=== PATIENT | male | born 1980 | race African-American/Black ===

== ENCOUNTER 2017-07-17 13:43 | Emergency (ER) | payer OTHER ==
[~2017-07-17] VITALS: Ht 170.2 cm; Wt 68.0 kg
[2017-07-17 14:12] VITALS: BP 132/94
--- NOTE | 2017-07-17 14:29 | Emergency Room Report ---
History of Present Illness General Chief Complaint: Skin Rash/Abscess Source: Patient Present Illness HPI 37 yo male presents to ER complaining of perianal abscess x2 days. Patient reports abscess has not drained; denies pus or blood from wound. Reports taking Ibuprofen for pain at 11AM. Patient denies related factors. Patient states he began to feel the bump at that time and has slowly been growing and becoming more painful since then. Patient reports hx of abscess; states they have been drained before or drained on there own; reports episodes of abscess in the same spot "4 or 5" times previously. Denies fever, chest pain, SOB, diarrhea, abdominal pain, blood in stool. Allergies: Coded Allergies: MORPHINE (Verified Adverse Reaction, Unknown, Hives, 07/17/17) Patient History Past Medical History: see triage record Reviewed Nursing Documentation: PMH: Agreed, PSxH: Agreed Nursing Documentation-PMH Hx Cardiac Problems: Yes - Heart valve surgery Review of Systems All Other Systems: negative except mentioned in HPI Physical Exam Vital Signs Date Time Temp Pulse Resp B/P (MAP) Pulse Ox O2 Delivery O2 Flow Rate FiO2 07/17/17 13:59 97.9 98 17 132/94 100 Room Air 97.9 Sp02 EP Interpretation: reviewed, normal General Appearance: well appearing, no apparent distress, alert, GCS 15, non- toxic Head: normocephalic, atraumatic Eyes: bilateral eye normal inspection, bilateral eye PERRL ENT: hearing grossly normal, normal pharynx, normal voice, uvula midline, moist mucus membranes Respiratory: normal inspection, lungs clear, no accessory muscle use, no wheezing, speaking full sentences Cardiovascular #1: regular rate, rhythm Gastrointestinal: non tender, soft, no mass, non-distended, no guarding, no rebound Rectal: deferred, other - no external hemorrhoids Genitourinary: scrotum normal Musculoskeletal: back normal, digits/nails normal, gait/station normal, normal range of motion Neurologic: alert, oriented x3, responsive, motor strength/tone normal, normal gait Psychiatric: mood/affect normal Skin: other - 2-3 cm deep mass on right medial buttock near perineum; TTP; indurated, does not come to a point, no ertyhema, no drainage Medical Decision Making PA Attestation Dr. Whatley is my supervising Physician whom patient management has been discussed with. Diagnostic Impression: Primary Impression: Perianal abscess ER Course Pt. presents to the ED c/o abscess Ddx considered but are not limited to cellulitis, abscess, fistula, hemorrhoid , pilonidal cyst. Vital signs: are WNL, pt. is afebrile Due to recurrence of abscess in perianal area, will perform CT imaging at this time. Ordered pain medication, labs, and CT abdomen/pelvis. ED COURSE: Toradol for pain. Labs unremarkable. CT shows perianal fluid accumulation Patient given option for bedside I&D in ER today. Patient declined. Patient prefers to be discharged on antibiotics and followup with primary care provider. Patient reports previously being treated with Clindamycin with resolution of symptoms. Patient given first dose of Clindamycin in ER. Patient is afebrile, non-septic. Patient resting comfortably, in no acute distress, nontoxic appearing. Patient was seen and evaluated by Dr. Whatley; agrees to treatment and followup plan. DISCHARGE: -Rx provided for Clindamycin -Rx provided for Ibuprofen for pain. At this time pt. is stable for d/c to home. Will provide printed patient care instructions and any necessary prescriptions. Care plan and follow up instructions have been discussed with the patient prior to discharge. Patient instructed to follow-up with primary care provider in 2 - 3 days for wound recheck. Patient questions asked and answered. ER precautions given. Patient instructed to return to ER immediately for any new or worsening of symptoms including but not limited to fever, worsening of pain symptoms, worsening of erythema, red streaking. Labs Test 07/17/17 14:48 White Blood Count 11.4 K/UL (4.8-10.8) Red Blood Count 5.08 M/UL (4.70-6.10) Hemoglobin 15.8 G/DL (14.2-18.0) Hematocrit 45.7 % (42.0-52.0) Mean Corpuscular Volume 90 FL (80-99) Mean Corpuscular Hemoglobin 31.2 PG (27.0-31.0) Mean Corpuscular Hemoglobin Concent 34.6 G/DL (32.0-36.0) Red Cell Distribution Width 12.1 % (11.6-14.8) Platelet Count 210 K/UL (150-450) Mean Platelet Volume 6.3 FL (6.5-10.1) Neutrophils (%) (Auto) 75.2 % (45.0-75.0) Lymphocytes (%) (Auto) 12.8 % (20.0-45.0) Monocytes (%) (Auto) 9.8 % (1.0-10.0) Eosinophils (%) (Auto) 0.3 % (0.0-3.0) Basophils (%) (Auto) 1.9 % (0.0-2.0) Urine Color Yellow Urine Appearance Clear Urine pH 5 (4.5-8.0) Urine Specific [place] 1.015 (1.005-1.035) Urine Protein 1+ (NEGATIVE) Urine Glucose (UA) Negative (NEGATIVE) Urine Ketones Negative (NEGATIVE) Urine Occult Blood Negative (NEGATIVE) Urine Nitrite Negative (NEGATIVE) Urine Bilirubin Negative (NEGATIVE) Urine Urobilinogen Normal MG/DL (0.0-1.0) Urine Leukocyte Esterase 1+ (NEGATIVE) Urine RBC 0-2 /HPF (0 - 0) Urine WBC 2-4 /HPF (0 - 0) Urine Squamous Epithelial Cells None /LPF (NONE/OCC) Urine Bacteria Few /HPF (NONE) Sodium Level 139 MMOL/L (136-145) Potassium Level 3.9 MMOL/L (3.5-5.1) Chloride Level 101 MMOL/L (98-107) Carbon Dioxide Level 31 MMOL/L (21-32) Anion Gap 7 mmol/L (5-15) Blood Urea Nitrogen 8 mg/dL (7-18) Creatinine 1.2 MG/DL (0.55-1.30) Estimat Glomerular Filtration Rate > 60 mL/min (>60) Glucose Level 84 MG/DL (74-106) Calcium Level 9.7 MG/DL (8.5-10.1) Total Bilirubin 0.9 MG/DL (0.2-1.0) Aspartate Amino Transf (AST/SGOT) 17 U/L (15-37) Alanine Aminotransferase (ALT/SGPT) < 6 U/L (12-78) Alkaline Phosphatase 62 U/L (46-116) Total Protein 8.5 G/DL (6.4-8.2) Albumin 4.0 G/DL (3.4-5.0) Globulin 4.5 g/dL Albumin/Globulin Ratio 0.9 (1.0-2.7) CT/MRI/US Diagnostic Results CT/MRI/US Diagnostic Results : Imaging Test Ordered: Abdomen pelvis Impression 3.6 x 1.7 x 2.3 cm fluid collection anterior to the anus within the perineal fat. Presumably related to stated clinical diagnosis of perianal abscess No other significant abnormality demonstrated Incidental findings of left adrenal hyperplasia, trace bilateral scrotal hydroceles Last Vital Signs Date Time Temp Pulse Resp B/P (MAP) Pulse Ox O2 Delivery O2 Flow Rate FiO2 07/17/17 14:12 97.9 17 132/94 100 Room Air 97.9 07/17/17 13:59 98 Disposition: HOME, SELF-CARE Condition: Stable Scripts Clindamycin Hcl (CLINDAMYCIN HCL) 300 Mg Capsule 300 MG ORAL THREE TIMES A DAY for 7 Days, #20 CAP Prov: Geronimo Bailey 07/17/17 Ibuprofen* (MOTRIN*) 600 Mg Tablet 600 MG ORAL Q8H Y for For Pain, #30 TAB 0 Refills Prov: Geronimo Bailey 07/17/17 Patient Instructions: Perianal Abscess Additional Instructions: Followup with primary care provider in 2- 3 days. Take medications as directed. Patient questions asked and answered. ER precautions given, patient instructed to return to ER immediately for any new or worsening of symptoms. Geronimo Bailey Jul 17, 2017 14:29
[2017-07-17] MEDS ORDERED: Ketorolac 30mg Inj IV ONE (14:45)
[2017-07-17 15:08] LABS: BASOPHILS % (AUTO) 1.9 % (0.0-2.0); EOSINOPHILS % (AUTO) 0.3 % (0.0-3.0); HEMATOCRIT 45.7 % (42.0-52.0); HEMOGLOBIN 15.8 G/DL (14.2-18.0); LYMPHOCYTES % (AUTO) 12.8 % (20.0-45.0); MEAN CORPUSCULAR VOLUME 90 FL (80-99); MONOCYTES % (AUTO) 9.8 % (1.0-10.0); NEUTROPHILS % (AUTO) 75.2 % (45.0-75.0); PLATELET COUNT 210 K/UL (150-450); RED BLOOD COUNT 5.08 M/UL (4.70-6.10); RED CELL DISTRIBUTION WIDTH 12.1 % (11.6-14.8); WHITE BLOOD COUNT 11.4 K/UL (4.8-10.8)
[2017-07-17 15:18] LABS: APPEARANCE,URINE CLEAR; BILIRUBIN, URINE NEGATIVE (NEGATIVE); GLUCOSE, URINE (UA) NEGATIVE (NEGATIVE); KETONES,URINE NEGATIVE (NEGATIVE); LEUKOCYTE ESTERASE ,URINE 1+ (NEGATIVE); NITRITE,URINE NEGATIVE (NEGATIVE); PH,URINE 5 (4.5-8.0); PROTEIN,URINE 1+ (NEGATIVE); UROBILINOGEN,URINE NORMAL MG/DL (0.0-1.0)
[2017-07-17 15:21] LABS: COLOR,URINE YELLOW
[2017-07-17 15:23] LABS: ANION GAP 7 mmol/L (5-15); BLOOD UREA NITROGEN 8 mg/dL (7-18); CALCIUM 9.7 MG/DL (8.5-10.1); CARBON DIOXIDE 31 MMOL/L (21-32); CHLORIDE 101 MMOL/L (98-107); CREATININE 1.2 MG/DL (0.55-1.30); POTASSIUM 3.9 MMOL/L (3.5-5.1); SODIUM 139 MMOL/L (136-145)
[2017-07-17 15:28] LABS: ALANINE AMINOTRANSFERASE < 6 U/L (12-78); ALBUMIN/GLOBULIN RATIO 0.9 (1.0-2.7); ALKALINE PHOSPHATASE 62 U/L (46-116); ASPARTATE AMINO TRANSFERASE 17 U/L (15-37); BILIRUBIN,TOTAL 0.9 MG/DL (0.2-1.0)
[2017-07-17 16:18] VITALS: BP 130/90
--- NOTE | 2017-07-17 16:34 | Diagnostic Imaging Report ---
Clinical Indication: Pain, suspected perirectal abscess Technique: No oral contrast utilized, per emergency room physician request IV administration nonionic contrast. Venous phase spiral acquisition obtained through the abdomen and pelvis. Multiplanar reconstructions were generated. Total dose length product 939.01 mGycm. CTDIvol(s) 11.42,18.4 mGy. Dose reduction achieved using automated exposure control Comparison: none Findings: In the superficial perianal fat anterior to and in the midline and to the right of the anus, there is a fluid collection which measures 3.6 cm transverse by 1.7 cm AP by 2.3 cm craniocaudad. There is slight rim enhancement. There is slight infiltration of the perineal fat bilaterally. No evidence of diverticulosis or diverticulitis. The appendix is unremarkable. No small bowel distention. No free or loculated intraperitoneal air or fluid is evident. The distal esophagus, stomach, duodenum are all unremarkable. The liver, gallbladder, bile ducts, pancreas, spleen, right adrenal are unremarkable. The left adrenal is diffusely hyperplastic without discrete mass demonstrated. The kidneys are unremarkable. However, despite relatively early phase imaging, there is contrast in the renal collecting systems, precluding exclusion of calyceal calculi. No retroperitoneal or mesenteric mass or adenopathy. No pelvic mass or adenopathy. There is incidental finding of trace bilateral scrotal hydroceles. The included lung bases are clear. The bones are unremarkable. Impression: 3.6 x 1.7 x 2.3 cm fluid collection anterior to the anus within the perineal fat. Presumably related to stated clinical diagnosis of perianal abscess No other significant abnormality demonstrated Incidental findings of left adrenal hyperplasia, trace bilateral scrotal hydroceles The CT scanner at [facility] is accredited by the [employer] and the scans are performed using protocols designed to limit radiation exposure to as low as reasonably achievable to attain images of sufficient resolution adequate for diagnostic evaluation.
[2017-07-17] MEDS ORDERED: IBUPROFEN600 MG ORAL (16:52)
[2017-07-17] MEDS ORDERED: CLINDAMYCIN HC300 MG ORAL (16:52)
[2017-07-17 16:59] VITALS: BP 130/90
[2017-07-17] MEDS ORDERED: Clindamycin 150mg cap ORAL SCH (18:00)
== END 2017-07-17 16:59 | disposition home or self-care (01) ==
LOC: EMR 14:24
DX: K61.0 Anal abscess (principal); Z88.5 Allergy status to narcotic agent
CPT/HCPCS: 36415; 74177; 80053; 81003; 85025; 96374; 99284; J1885; Q9967